=== PATIENT | female | born 1980 | race Caucasian/White ===

== ENCOUNTER 2017-10-19 03:56 | Emergency (ER) | payer SELFPAY ==
[2017-10-19] MEDS ORDERED: NS 1,000 ML IV ONE (03:59)
--- NOTE | 2017-10-19 04:00 | EDPHY ---
H & P Time Seen by Provider: 10/19/17 04:05 HPI/ROS: HPI CHIEF COMPLAINT: I had a seizure earlier tonight. HISTORY OF PRESENT ILLNESS: This patient is a 37-year-old female, she has a history of seizure disorder and takes Dilantin, additionally she has a history of bipolar and schizophrenia, she presents emergency room by EMS stating that earlier in the evening she had a seizure. She thinks it was a few hours ago. She is homeless. She recently arrived to [facility] [place]. She was at [facility] earlier today and received Dilantin. She denies drug or alcohol use. Past Medical History: Bipolar disorder, schizophrenia, seizure disorder takes dilated. Past Surgical History: Denies surgical history Social History: Homeless. Transit. Tobacco use. Denies illicit drugs or alcohol. Family History: Noncontributory. ROS REVIEW OF SYSTEMS: A comprehensive 10 point review of systems is otherwise negative aside from elements mentioned in the history of present illness. Exam Constitutional appears unkept, otherwise nontoxic no triage nursing summary reviewed, vital signs reviewed, awake/alert. Eyes normal conjunctivae and sclera, EOMI, PERRLA. HENT normal inspection, atraumatic, moist mucus membranes, no epistaxis, neck supple/ no meningismus, no raccoon eyes. Respiratory clear to auscultation bilaterally, normal breath sounds, no respiratory distress, no wheezing. Cardiovascular rate normal, regular rhythm, no murmur, no edema, distal pulses normal. Gastrointestinal soft, non-tender, no rebound, no guarding, normal bowel sounds, no distension, no pulsatile mass. Genitourinary no CVA tenderness. Musculoskeletal no midline vertebral tenderness, full range of motion, no calf swelling, no tenderness of extremities, no meningismus, good pulses, neurovascularly intact. Skin pink, warm, & dry, no rash, skin atraumatic. Neurologic awake, alert and oriented x 3, AAOx3, moves all 4 extremities equally, motor intact, sensory intact, CN II-XII intact, normal cerebellar, normal vision, normal speech. Psychiatric normal mood/affect. Heme/Lymph/Immune no lymphadenopathy. Differential Diagnosis: Includes but is not limited to in a particular order homelessness, dehydration, electrolyte disturbance, epilepsy, breakthrough seizure, medication noncompliance, subtherapeutic Dilantin level. Medical Decision Making: Plan for this patient IV establishment blood draw, check basic blood work, check electrolytes, gentle IV hydration 1 L normal saline, check Dilantin level. Re-evaluation: Blood work is reassuring. No low bicarb. No evidence of seizure activity here in emergency room she has been hemodynamically stable and resting. She received p.o. Dilantin here. Additionally prescription provided for Dilantin. I feel comfortable allowing her to be discharged from the emergency room. Return precautions discussed with her. Source: Patient, EMS Constitutional: Initial Vital Signs Temperature (C) 36.5 C 10/19/17 04:03 Heart Rate 88 10/19/17 04:03 Respiratory Rate 16 10/19/17 04:03 Blood Pressure 103/87 H 10/19/17 04:03 O2 Sat (%) 97 10/19/17 04:03 O2 Delivery Mode Room Air Allergies/Adverse Reactions: No Known Allergies Allergy (Unverified 10/19/17 04:03) Home Medications: Medication Instructions Recorded Dilantin 10/19/17 NK [No Known Home Meds] 10/19/17 Medical Decision Making - Data Points Laboratory Results: Laboratory Results 10/19/17 04:05 10/19/17 04:05 10/19/17 10/19/17 04:05 04:05 WBC 12.27 10^3/uL H 10^3/uL (3.80-9.50) RBC 4.38 10^6/uL 10^6/uL (4.18-5.33) Hgb 13.1 g/dL g/dL (12.6-16.3) Hct 39.7 % % (38.0-47.0) MCV 90.6 fL fL (81.5-99.8) MCH 29.9 pg pg (27.9-34.1) MCHC 33.0 g/dL g/dL (32.4-36.7) RDW 12.1 % % (11.5-15.2) Plt Count 353 10^3/uL 10^3/uL (150-400) MPV 8.6 fL L fL (8.7-11.7) Neut % (Auto) 76.9 % H % (39.3-74.2) Lymph % (Auto) 16.5 % % (15.0-45.0) Mcclain % (Auto) 5.3 % % (4.5-13.0) Eos % (Auto) 0.2 % L % (0.6-7.6) Baso % (Auto) 0.7 % % (0.3-1.7) Nucleat RBC Rel Count 0.0 % % (0.0-0.2) Absolute Neuts (auto) 9.43 10^3/uL H 10^3/uL (1.70-6.50) Absolute Lymphs (auto) 2.03 10^3/uL 10^3/uL (1.00-3.00) Absolute Monos (auto) 0.65 10^3/uL 10^3/uL (0.30-0.80) Absolute Eos (auto) 0.02 10^3/uL L 10^3/uL (0.03-0.40) Absolute Basos (auto) 0.09 10^3/uL 10^3/uL (0.02-0.10) Absolute Nucleated RBC 0.00 10^3/uL 10^3/uL (0-0.01) Immature Gran % 0.4 % % (0.0-1.1) Immature Gran # 0.05 10^3/uL 10^3/uL (0.00-0.10) Sodium 142 mEq/L mEq/L (135-145) Potassium 3.9 mEq/L mEq/L (3.5-5.2) Chloride 103 mEq/L mEq/L (97-110) Carbon Dioxide 27 mEq/l mEq/l (22-31) Anion Gap 12 mEq/L mEq/L (8-16) BUN 12 mg/dL mg/dL (7-23) Creatinine 0.5 mg/dL L mg/dL (0.6-1.0) Estimated GFR > 60 Glucose 84 mg/dL mg/dL (70-100) Calcium 9.6 mg/dL mg/dL (8.5-10.4) Phenytoin 3.7 mcg/mL L mcg/mL (10.0-20.0) Medications Given: Discontinued Medications Sodium Chloride (Ns) 1,000 mls @ 0 mls/hr IV ONCE ONE PRN Reason: Wide Open Stop: 10/19/17 04:00 Last Admin: 10/19/17 04:09 Dose: 1,000 mls Departure - Departure Disposition: Home, Routine, Self-Care Clinical Impression: Seizure Condition: Good Instructions: Epilepsy (ED) Referrals: Patient,NotPresent [Primary Care Provider] - As per Instructions [facility],. [Clinic] - As per Instructions
[2017-10-19 04:06] VITALS: RESP 16; O2SAT 97
[2017-10-19 04:19] LABS: PLATELET COUNT 353 10^3/uL (150-400)
[2017-10-19] MEDS ORDERED: PHENYTOIN SODIUM EXTENDED 100 MG CAP PO ONE (04:47)
[2017-10-19 05:17] VITALS: BP 101/74; PULSE 78; TEMP 98.2
== END 2017-10-19 05:16 | disposition home or self-care (01) ==
DX: G40.909 Epilepsy, unspecified, not intractable, without status epilepticus (principal)

== ENCOUNTER 2017-10-20 02:27 | Emergency (ER) | payer MEDICAID ==
--- NOTE | 2017-10-20 02:32 | EDPHY ---
H & P Time Seen by Provider: 10/20/17 02:30 HPI/ROS: HPI CHIEF COMPLAINT: "I think I had another seizure" "I want to kill myself" HISTORY OF PRESENT ILLNESS: Patient is a 37-year-old female she presents emergency room by EMS after she states she thinks she had another seizure. She did not bite her tongue there is no bowel bladder incontinence. She remembers the shaking event. Upon arrival to the emergency room she is alert and oriented in no acute distress. Denies drugs or alcohol. She distally mention that she wants to kill herself. She has no specific plan. This patient I saw last night for a seizure, blood work was reviewed and normal. She received island in the emergency room. And dilate prescription. She did not get her Dilantin prescription filled. Past Medical History: Seizure disorder Past Surgical History: Denies significant surgical history Social History: Homeless, denies drugs alcohol tobacco products. Family History: Noncontributory ROS REVIEW OF SYSTEMS: A comprehensive 10 point review of systems is otherwise negative aside from elements mentioned in the history of present illness. Exam Constitutional unkept, disheveled triage nursing summary reviewed, vital signs reviewed, awake/alert. Eyes normal conjunctivae and sclera, EOMI, PERRLA. HENT normal inspection, atraumatic, moist mucus membranes, no epistaxis, neck supple/ no meningismus, no raccoon eyes. Respiratory clear to auscultation bilaterally, normal breath sounds, no respiratory distress, no wheezing. Cardiovascular rate normal, regular rhythm, no murmur, no edema, distal pulses normal. Gastrointestinal soft, non-tender, no rebound, no guarding, normal bowel sounds, no distension, no pulsatile mass. Genitourinary no CVA tenderness. Musculoskeletal no midline vertebral tenderness, full range of motion, no calf swelling, no tenderness of extremities, no meningismus, good pulses, neurovascularly intact. Skin pink, warm, & dry, no rash, skin atraumatic. Neurologic awake, alert and oriented x 3, AAOx3, moves all 4 extremities equally, motor intact, sensory intact, CN II-XII intact, normal cerebellar, normal vision, normal speech. Psychiatric normal mood/affect. Heme/Lymph/Immune no lymphadenopathy. Differential Diagnosis: Includes but is not limited to in a particular order medication noncompliance, pseudoseizures, epilepsy, seizure, mood disorder, bipolar, depression, suicidal ideation Medical Decision Making: Plan for this patient blood draw for medical clearance , check Dilantin level, check electrolytes. Re-evaluate. Re-evaluation: 340: Blood work reviewed. Drug screen reviewed positive for methamphetamine. 0706: Patient signed over to Dr. Simons. Pending mental health evaluation. Source: Patient, EMS - Medical/Surgical History Hx Asthma: No Hx Chronic Respiratory Disease: No Hx Diabetes: No Hx Cardiac Disease: No Hx Renal Disease: No Hx Cirrhosis: No Hx Alcoholism: No Hx HIV/AIDS: No Hx Splenectomy or Spleen Trauma: No Other PMH: bipolar, SZ - Social History Smoking Status: Current every day smoker Constitutional: Initial Vital Signs Temperature (C) 36.4 C 10/20/17 02:19 Heart Rate 84 10/20/17 02:19 Respiratory Rate 18 10/20/17 02:19 Blood Pressure 107/55 L 10/20/17 02:19 O2 Sat (%) 98 10/20/17 02:19 O2 Delivery Mode Room Air Allergies/Adverse Reactions: No Known Allergies Allergy (Unverified 10/19/17 04:03) Home Medications: Medication Instructions Recorded Dilantin 10/19/17 Phenytoin Sodium Extended 300 mg PO HS #30 cap 10/19/17 [Dilantin (*)] Medical Decision Making - Data Points Laboratory Results: Laboratory Results 10/20/17 02:41 10/20/17 02:41 Medications Given: Discontinued Medications Phenytoin Sodium (Dilantin) 300 mg PO EDNOW ONE Stop: 10/20/17 03:43 Last Admin: 10/20/17 04:11 Dose: 300 mg Departure - Departure Disposition: Home, Routine, Self-Care Clinical Impression: Seizure, Methamphetamine abuse Condition: Good Instructions: Methamphetamine Abuse (ED) Referrals: NONE *PRIMARY CARE P,. [Primary Care Provider] - As per Instructions
[2017-10-20 02:41] VITALS: O2SAT 98
[2017-10-20 02:49] LABS: PLATELET COUNT 369 10^3/uL (150-400)
[2017-10-20] MEDS ORDERED: PHENYTOIN SODIUM EXTENDED 100 MG CAP PO ONE (03:42)
[2017-10-20 07:39] VITALS: BP 98/57; PULSE 80; RESP 12; TEMP 98.2
== END 2017-10-20 13:44 | disposition home or self-care (01) ==
LOC: EDUNIT#
DX: G40.909 Epilepsy, unspecified, not intractable, without status epilepticus (principal); F17.200 Nicotine dependence, unspecified, uncomplicated; F15.10 Other stimulant abuse, uncomplicated
CPT/HCPCS: 80305; G0480